=== PATIENT | male | born 1990 | race American Indian/Alaskan Native ===

== ENCOUNTER 2018-12-15 10:40 | Emergency (ER) | payer OTHER ==
[2018-12-15 10:53] VITALS: BP 152/84
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
--- NOTE | 2018-12-15 11:16 | XRay Report ---
LEFT KNEE, 3 views: History: Pain. The bony architecture is intact without evidence of fracture or dislocation. No significant soft tissue abnormality is seen. IMPRESSION: Normal left knee.
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
== END 2018-12-15 11:30 | disposition home or self-care (01) ==
LOC: ED 10:40
DX: M25.562 Pain in left knee (principal); F17.200 Nicotine dependence, unspecified, uncomplicated; V49.59XA Passenger injured in collision with other motor vehicles in traffic accident, initial encounter; Y93.89 Activity, other specified; Y92.488 Other paved roadways as the place of occurrence of the external cause; Y99.8 Other external cause status
CPT/HCPCS: 99283